=== PATIENT | male | born 1955 | race Caucasian/White ===

== ENCOUNTER 2018-07-17 20:18 | Inpatient (IN) ==
[2018-07-17 20:50] LABS: Baso # (Auto) 0.1 th/mm3 (0.0-0.2); Eos # (Auto) 0.2 th/mm3 (0.0-0.4); Eos % (Auto) 1.3 % (0.0-4.0); Hematocrit 49.6 % (39.0-51.0); Hemoglobin 16.9 gm/dL (13.0-17.0); Lymph # (Auto) 3.3 th/mm3 (1.0-4.8); Lymph % (Auto) 28.3 % (9.0-44.0); Mean Corpuscular HGB Conc 34.2 % (32.0-36.0); Mean Corpuscular Hemoglobin 30.8 pg (27.0-34.0); Mean Platelet Volume 8.1 fL (7.0-11.0); Mono # (Auto) 1.1 th/mm3 (0.0-0.9); Mono % (Auto) 9.5 % (0.0-8.0); Neut # (Auto) 7.1 th/mm3 (1.8-7.7); Neut % (Auto) 59.9 % (16.0-70.0); Platelet Count 192 th/mm3 (150-450); Red Blood Count 5.51 mil/mm3 (4.50-5.90); White Blood Count 11.8 th/mm3 (4.0-11.0)
--- NOTE | 2018-07-17 20:56 | XR ---
EXAM DATE: 07/17/2018 8:47 PM EST AGE/SEX: 62 years / Male INDICATIONS: Short of breath. CLINICAL DATA: This is the patient's initial encounter. Patient reports that signs and symptoms have been present for 1 day and indicates a pain score of 0/10. MEDICAL/SURGICAL HISTORY: None. None. COMPARISON: No prior exams available for comparison. FINDINGS: A single AP view of the chest demonstrates bibasilar patchy infiltrates. Heart enlarged. Tracheostomy tube 6.5 cm above the lucian. The cardiomediastinal contours are unremarkable. Osseous structures a re intact. CONCLUSION: Bibasilar patchy infiltrates. Electronically signed by: Niko Sierra MD Board Certified Radiologist 07/17/2018 8:55 PM EST
[2018-07-17 21:08] LABS: Activated Partial Thrombo Time 27.9 sec (23.4-31.7); INR 1.1 Ratio; Prothrombin Time 10.7 sec (9.8-11.6)
[2018-07-17] MEDS ORDERED: LORazepam 1 MG Tablet PO PRN (21:29)
[2018-07-17] MEDS ORDERED: Azithromycin Inj 500 MG in Sodium Chlor 0.9% Inj 250 ML IV.SIG ONE (21:29)
[2018-07-17] MEDS ORDERED: Haloperidol Inj 5 MG/ML Ampul IV.PUSH PRN (21:29)
[2018-07-17 21:57] LABS: Albumin 3.9 g/dL (3.4-5.0); Anion Gap 15 meq/L (5-15); Blood Urea Nitrogen 7 mg/dL (7-18); Calcium 8.7 mg/dL (8.5-10.1); Carbon Dioxide 22.5 meq/L (21.0-32.0); Chloride 108 meq/L (98-107); Glomerular Filtration Rate 70 mL/min (>89); Glucose,Random 96 mg/dL (74-106); Potassium 3.6 meq/L (3.5-5.1); Sodium 145 meq/L (136-145)
[2018-07-17 21:59] LABS: Alanine Aminotransferase 63 U/L (12-78); Aspartate Aminotransferase 57 U/L (15-37)
[2018-07-17 22:02] LABS: Alkaline Phosphatase 110 U/L (45-117); Creatine Kinase 442 U/L (39-308); Total Protein 8.1 g/dL (6.4-8.2)
[2018-07-17 22:11] LABS: Creatine Kinase MB 4.6 ng/mL (0.5-3.6)
[2018-07-17] MEDS ORDERED: Potassium Chlor 40 mEq Premix 40 MEQ/100 ML PIGGYBACK IV.SIG PRN ×2 (22:36)
[2018-07-17] MEDS ORDERED: Magnesium Sulfate Inj 2 GM in Sodium Chlor 0.9% Inj 96 ML IV.SIG PRN (22:36)
[2018-07-17] MEDS ORDERED: Dextrose 50% in Water 50 ML Vial IV.PUSH PRN (22:36)
[2018-07-17] MEDS ORDERED: Magnesium Oxide 400 MG Tablet PO PRN (22:36)
[2018-07-17] MEDS ORDERED: Potassium Chlor 20 mEq Premix 20 MEQ/100 ML PIGGYBACK IV.SIG PRN ×2 (22:36)
[2018-07-17] MEDS ORDERED: Potassium Phosphate Inj 30 MMOL in Sodium Chlor 0.9% Inj 250 ML IV.SIG PRN (22:36)
[2018-07-17] MEDS ORDERED: Potassium Chloride Liq 20 MEQ/15 ML UDC PO PRN ×2 (22:36)
[2018-07-17] MEDS ORDERED: Sodium Phosphate Inj 30 MMOL in Sodium Chlor 0.9% Inj 250 ML IV.SIG PRN (22:36)
[2018-07-17] MEDS ORDERED: Magnesium Sulfate Inj 4 GM in Sodium Chlor 0.9% Inj 92 ML IV.SIG PRN (22:36)
[2018-07-17] MEDS ORDERED: Bisacodyl 10 MG Supp RECTAL PRN (22:36)
[2018-07-17] MEDS ORDERED: Potassium Phosphate 500 MG Soluble Tablet PO PRN ×2 (22:36)
[2018-07-17] MEDS ORDERED: Acetaminophen 325 MG Tablet PO PRN (22:36)
--- NOTE | 2018-07-17 22:39 | ED ---
HPI General Chief complaint: Shortness of Breath/Dyspnea Stated complaint: difficulty breathing Time Seen by Provider: 07/17/18 20:24 Source: patient and EMS Mode of arrival: EMS Limitations: no limitations History of Present Illness HPI narrative: Patient is a 62-year-old male who is brought in by EMS due to respiratory distress. He says he developed chest pain earlier today as well as the shortness of breath. 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 He has history of IL in the past. He denies any leg pain or swelling. He denies fever or chills. He has been coughing up a lot of mucus through the trach. Severity is moderate. Per daughter, patient is a daily drinker. Related Data Allergies Allergy/AdvReac Type Severity Reaction Status Date / Time codeine Allergy Rash Verified 07/17/18 20:24 Review of Systems ROS: all other systems reviewed are negative Constitutional Denies chills and Denies fever(s) ENT Denies dizziness Cardiovascular Reports chest pain and Reports dyspnea Respiratory Reports cough and Reports dyspnea Gastrointestinal Denies nausea and Denies vomiting Musculoskeletal Denies myalgias and Denies arthralgias Integumentary/Breasts Denies sores and Denies wounds Neurologic Denies focal weakness and Denies numbness Psychiatric Reports anxiety PMFSH Medical History Medical History Chest pain (Acute) Hypertension (Acute) Myocardial infarction (Acute) PTSD (post-traumatic stress disorder) (Acute) Tracheal stenosis (Acute) Social History Social History Smoking Status: Never smoker How Often Do You Have a Drink Containing Alcohol: Monthly or less Immunization History Tetanus Immunization: Unsure Exam Narrative Exam Narrative: GENERAL: Awake and alert, in moderate respiratory distress. SKIN: Focused skin assessment warm/dry. HEAD: Atraumatic. Normocephalic. EYES: Pupils equal and round. No scleral icterus. No injection or drainage. ENT: No nasal bleeding or discharge. Mucous membranes pink and moist. NECK: Trachea midline. No JVD. tracheostomy in place. CARDIOVASCULAR: Regular rate and rhythm. No murmur appreciated. RESPIRATORY: No accessory muscle use. Clear to auscultation. Breath sounds equal bilaterally. GASTROINTESTINAL: Abdomen soft, non-tender, nondistended. MUSCULOSKELETAL: No obvious deformities. No clubbing. No cyanosis. No edema. NEUROLOGICAL: Awake and alert. No obvious cranial nerve deficits. Motor grossly within normal limits. PSYCHIATRIC: Appropriate mood and affect; insight and judgment normal. Course Initial Documented Vital Signs Temperature 99.6 F 07/17/18 20:24 Pulse Rate 145 H 07/17/18 20:24 Respiratory Rate 38 H 07/17/18 20:24 Blood Pressure 149/85 H 07/17/18 20:24 Pulse Oximetry 93 L 07/17/18 20:24 Last Documented Vital Signs Temperature 99.6 F 07/17/18 20:24 Pulse Rate 120 H 07/17/18 21:00 Respiratory Rate 24 07/17/18 21:00 Blood Pressure 133/75 07/17/18 21:00 Pulse Oximetry 93 L 07/17/18 21:00 Critical Care Time Critical Care Time: Yes Total Critical Care Time: 35 Attestation: Aggregate critical care time was 35 minutes. Time to perform other separately billable procedures was not included in the critical care time. My time did not include minutes spent treating any other patients simultaneously or on activities that did not directly contribute to the patient's treatment. The services I provided to this patient were to treat and/or prevent clinically significant deterioration that could result in: serious illness or I provided critical care services requiring my management, as noted below: Chart data review, documentation time, medication orders and management, vital sign assessments/reviewing monitor data, ordering and reviewing lab tests, ordering and interpreting/reviewing x-rays and diagnostic studies, care of the patient and discussion of the patient with the admitting physicians. Medical Decision Making MDM Narrative Medical decision making narrative: Patient is a 62-year-old male who comes in due to respiratory distress. Patient is hypoxic and choking on arrival. EMS did give him a DuoNeb as well as 2 albuterol treatments, Solu-Medrol, aspirin. Patient suctioned via his trach with improvement of his saturation and breathing. Given additional duo nebs. Given Ativan for possible withdrawal/anxiety. Chest x-ray concerning for bilateral infiltrates. Given cefepime, azithromycin. Patient will be admitted for further management. Medical Screen Exam Complete: Yes Emergency Medical Condition: Yes Differential Diagnosis Differential Diagnosis: pneumonia vs mucus plug vs COPD vs IL Lab Data Lab results reviewed: Yes I reviewed the patient's lab results. Result diagrams: 07/17/18 20:30 07/17/18 20:30 Lab Results 07/17/18 07/17/18 07/17/18 Range/Units 20:26 20:30 20:30 WBC 11.8 H (4.0-11.0) th/mm3 RBC 5.51 (4.50-5.90) mil/mm3 Hgb 16.9 (13.0-17.0) gm/dL Hct 49.6 (39.0-51.0) % MCV 90.0 (80.0-100.0) fL MCH 30.8 (27.0-34.0) pg MCHC 34.2 (32.0-36.0) % RDW 16.0 (11.6-17.2) % Plt Count 192 (150-450) th/mm3 MPV 8.1 (7.0-11.0) fL Neut % (Auto) 59.9 (16.0-70.0) % Lymph % (Auto) 28.3 (9.0-44.0) % [place] % (Auto) 9.5 H (0.0-8.0) % Eos % (Auto) 1.3 (0.0-4.0) % Baso % (Auto) 1.0 (0.0-2.0) % Neut # (Auto) 7.1 (1.8-7.7) th/mm3 Lymph # (Auto) 3.3 (1.0-4.8) th/mm3 [place] # (Auto) 1.1 H (0.0-0.9) th/mm3 Eos # (Auto) 0.2 (0.0-0.4) th/mm3 Baso # (Auto) 0.1 (0.0-0.2) th/mm3 WBC Differential . Differential Comment Auto diff final PT (9.8-11.6) sec INR Ratio APTT (23.4-31.7) sec Sodium (136-145) meq/L Potassium (3.5-5.1) meq/L Chloride (98-107) meq/L Carbon Dioxide (21.0-32.0) meq/L Anion Gap (5-15) meq/L BUN (7-18) mg/dL Creatinine (0.60-1.30) mg/dL Estimated GFR (>89) mL/min POC Glucose 90 (68-110) mg/dl Random Glucose (74-106) mg/dL Calcium (8.5-10.1) mg/dL Total Bilirubin (0.2-1.0) mg/dL AST (15-37) U/L ALT (12-78) U/L Alkaline Phosphatase (45-117) U/L Total Creatine Kinase (39-308) U/L CK-MB (CK-2) (0.5-3.6) ng/mL CK-MB (CK-2) % (0.0-4.0) % Troponin I (0.02-0.05) ng/mL B-Natriuretic Peptide 8 (0-100) pg/mL Total Protein (6.4-8.2) g/dL Albumin (3.4-5.0) g/dL 07/17/18 07/17/18 Range/Units 20:30 20:30 WBC (4.0-11.0) th/mm3 RBC (4.50-5.90) mil/mm3 Hgb (13.0-17.0) gm/dL Hct (39.0-51.0) % MCV (80.0-100.0) fL MCH (27.0-34.0) pg MCHC (32.0-36.0) % RDW (11.6-17.2) % Plt Count (150-450) th/mm3 MPV (7.0-11.0) fL Neut % (Auto) (16.0-70.0) % Lymph % (Auto) (9.0-44.0) % [place] % (Auto) (0.0-8.0) % Eos % (Auto) (0.0-4.0) % Baso % (Auto) (0.0-2.0) % Neut # (Auto) (1.8-7.7) th/mm3 Lymph # (Auto) (1.0-4.8) th/mm3 [place] # (Auto) (0.0-0.9) th/mm3 Eos # (Auto) (0.0-0.4) th/mm3 Baso # (Auto) (0.0-0.2) th/mm3 WBC Differential Differential Comment PT 10.7 (9.8-11.6) sec INR 1.1 Ratio APTT 27.9 (23.4-31.7) sec Sodium 145 (136-145) meq/L Potassium 3.6 (3.5-5.1) meq/L Chloride 108 H (98-107) meq/L Carbon Dioxide 22.5 (21.0-32.0) meq/L Anion Gap 15 (5-15) meq/L BUN 7 (7-18) mg/dL Creatinine 1.07 (0.60-1.30) mg/dL Estimated GFR 70 L (>89) mL/min POC Glucose (68-110) mg/dl Random Glucose 96 (74-106) mg/dL Calcium 8.7 (8.5-10.1) mg/dL Total Bilirubin 0.5 (0.2-1.0) mg/dL AST 57 H (15-37) U/L ALT 63 (12-78) U/L Alkaline Phosphatase 110 (45-117) U/L Total Creatine Kinase 442 H (39-308) U/L CK-MB (CK-2) 4.6 H (0.5-3.6) ng/mL CK-MB (CK-2) % 1.0 (0.0-4.0) % Troponin I Less than 0.02 L (0.02-0.05) ng/mL B-Natriuretic Peptide (0-100) pg/mL Total Protein 8.1 (6.4-8.2) g/dL Albumin 3.9 (3.4-5.0) g/dL Imaging Data Radiologist's impression: Chest X-Ray 07/17/18 20:25 CONCLUSION: Bibasilar patchy infiltrates. ECG Data EKG Prior to Arrival: No Attestation: I personally reviewed and interpreted this ECG as follows: Interpretation: ECG shows sinus tachycardia at a rate of 117, no ST elevation or depression Discharge Plan Discharge Disposition Patient Disposition: ED Admit(ED Internal Use Only) Discharge Condition Condition: Fair Discharge Order Discharge Orders: ED Use Only Admit Order (Routine); Ordered 07/17/18 Ordered By: Coco Atkins Discharge Details Diagnosis: Pneumonia, Hypoxia Physicians Team ED Provider: Coco Atkins Primary Care Provider: Primary Care Nathaliai,Mariajose Attending Provider: Servando Gusman Other Providers: Annia Casillas Discharge Interventions Interventions: Vital Signs Last Done: 07/17/18 21:00 Status ED Status: Admitted Patient
[2018-07-17] MEDS ORDERED: Multivitamin Inj 10 ML, Thiamine Inj 100 MG, Folic Acid Inj 1 MG in Sodium Chlor 0.9% I... IV.SIG SCH (23:00)
--- NOTE | 2018-07-17 23:42 | P.HPCC ---
History of Present Illness Service: Critical care medicine Primary Care Physician: No Primary Care Physician Chief Complaint: Shortness of breath History of Present Illness: This is a 62-year-old male with a history of tracheal stenosis status post tracheostomy in the remote past who presented by [facility] with acute shortness of breath. In the emergency department he was found to have bilateral consolidations concerning for infectious process. An elevated white count. He endorses 3 days of fever, chills, green sputum production, shortness of breath, cough. He says he has had pneumonia 7 times in the last 12 months. He denies chest pain, nausea, vomiting, abdominal pain, constipation, diarrhea. Denies hemoptysis. Other than his tracheal stenosis, he states he is otherwise healthy. He does state he drinks alcohol heavily daily. The remainder the review systems is negative. Laboratory evidence is significant for elevated lactate of 3.2, and a white count of 11. Inpatient Certification: I certify that the inpatient services were ordered in accordance with Medicare regulations governing the order. This includes certification that hospital inpatient services are reasonable and necessary and in the case of services not specified as inpatient-only under 42 CFR 419.22(n), that they are appropriately provided as inpatient services in accordance to with the 2-midnight benchmark under 43 CFR 412.3(e) Estimated Total Length of Stay (Days): 7 Plans for Post Hospital Care: Not yet determined Review of Systems All other systems reviewed negative except as stated in [facility] - History History Provided By: Patient - Medical History Medical History: Medical History (Last Updated 07/18/18 @ 01:23 by Servando Gusman MD) Chest pain Hypertension Myocardial infarction PTSD (post-traumatic stress disorder) Tracheal stenosis - Surgical History Surgical History: Surgical History (Last Updated 07/18/18 @ 01:23 by Servando Gusman MD) Tracheostomy in place (Acute) - Family History Family History: Family History (Last Updated 07/18/18 @ 01:22 by Servando Gusman MD) Other Family history non-contributory - Social History I have reviewed the patient's Social History: Yes - Tobacco History Smoking Status: Never smoker - Alcohol History How Often Do You Have a Drink Containing Alcohol: Monthly or less - Immunization History Tetanus Immunization: Unsure Medications and Allergies Active Medications: Active Medications Acetaminophen (Tylenol) 650 mg PO Q6H PRN PRN Reason: TEMPERATURE > 101 F Albuterol (Duoneb Neb (Prn)) 1 ampul NEB Q2HR NEB PRN PRN Reason: WHEEZING Albuterol (Duoneb Neb (Judith)) 1 ampul NEB Q4HR NEB JUDITH Last Admin: 07/17/18 23:42 Dose: 1 ampul Bisacodyl (Dulcolax Supp) 10 mg RECTAL DAILY PRN PRN Reason: if no BM in last 24h Chlorhexidine Gluconate (Chlorhexidine 2% Cloth) 3 pack TOPICAL DAILY@0400 JUDITH Stop: 07/23/18 03:59 Chlorhexidine Gluconate (Chlorhexidine 2% Cloth) 3 pack TOPICAL DAILY@0400 PRN PRN Reason: Extra cloth needed Stop: 07/23/18 03:59 Dextrose (D50w Vial) 50 ml IV.PUSH UNSCH PRN PRN Reason: PER HYPOGLYCEMIA PROTOCOL Enoxaparin Sodium (Lovenox Inj) 40 mg SQ DAILY JUDITH Flumazenil (Romazicon Inj) 0.2 mg IV.PUSH Q1M PRN PRN Reason: OVERSEDATION Folic Acid (Folic Acid) 1 mg PO DAILY [facility] Stop: 07/21/18 08:59 Glucagon (Glucagon Inj) 1 mg OTHER PRN PRN PRN Reason: for Hypoglycemia Protocol Haloperidol Lactate (Haldol Inj) 1 mg IV.PUSH Q15M PRN PRN Reason: for severe agitation Cefepime HCl 2,000 mg/ Sodium (Chloride) 100 mls @ 200 mls/hr IV.SIG Q8H JUDITH Magnesium Sulfate 4 gm/ Sodium (Chloride) 100 mls @ 50 mls/hr IV.SIG UNSCH PRN PRN Reason: For Magnesium 0.9 - 1.1 mg/dL Magnesium Sulfate 2 gm/ Sodium (Chloride) 100 mls @ 50 mls/hr IV.SIG UNSCH PRN PRN Reason: For Magnesium 1.2 - 1.6 mg/dL Metronidazole/Sodium Chloride (Flagyl 500 Mg Inj) 100 mls @ 100 mls/hr IV.SIG Q6H JUDITH Potassium Chloride (Kcl 40 Meq Premix Inj) 40 meq in 100 mls @ 25 mls/hr IV.SIG Q2H PRN PRN Reason: For Potassium 2.8 - 3.2 mEq/L Potassium Chloride (Kcl 20 Meq Premix Inj) 20 meq in 100 mls @ 50 mls/hr IV.SIG Q2H PRN PRN Reason: For Potassium 3.3 - 3.5 mEq/L Potassium Chloride (Kcl 40 Meq Premix Inj) 40 meq in 100 mls @ 25 mls/hr IV.SIG UNSCH PRN PRN Reason: For Potassium 3.3 - 3.5 mEq/L Potassium Chloride (Kcl 20 Meq Premix Inj) 20 meq in 100 mls @ 50 mls/hr IV.SIG Q2H PRN PRN Reason: For Potassium 2.8 - 3.2 mEq/L Potassium Phosphate 30 mmol/ (Sodium Chloride) 260 mls @ 42 mls/hr IV.SIG UNSCH PRN PRN Reason: SEE LABEL COMMENTS Sodium Phosphate 30 mmol/ (Sodium Chloride) 260 mls @ 42 mls/hr IV.SIG UNSCH PRN PRN Reason: For Phosphorus < 2.5 mg/dL Multivitamins 10 ml/ Thiamine HCl 100 mg/ Folic Acid 1 mg/Sodium Chloride 511.2 mls @ 125 mls/hr IV.SIG Q24H JUDITH Stop: 07/20/18 03:06 Sodium Chloride (Ns Inj) 1,000 mls @ 84 mls/hr IV.CONT .[id number] JUDITH Insulin Human Regular (Novolin R [employer] Sugar Inj) 0 units SQ ACHS AND 3AM JUDITH; Protocol Lactulose (Lactulose Liq) 30 ml PO BID JUDITH Lorazepam (Ativan) 1 mg PO Q4H PRN PRN Reason: for CIWA 8-10 Lorazepam (Ativan) 2 mg PO Q2H PRN PRN Reason: for CIWA 11-14 Lorazepam (Ativan Inj) 2 mg IV.PUSH Q2H PRN PRN Reason: for CIWA 11-14 Lorazepam (Ativan Inj) 2 mg IV.PUSH Q1H PRN PRN Reason: for CIWA 15-20 Lorazepam (Ativan Inj) 2 mg IV.PUSH Q15M PRN PRN Reason: for CIWA > 20 Lorazepam (Ativan Inj) 1 mg IV.PUSH Q4H PRN PRN Reason: for CIWA 8-10 Magnesium Oxide (Mag-Ox) 800 mg PO UNSCH PRN PRN Reason: For Magnesium 1.2 - 1.6 mg/dL Ondansetron HCl (Zofran Inj) 4 mg IV.PUSH Q6H PRN PRN Reason: NAUSEA OR VOMITING Polyethylene Glycol (Miralax) 17 gm PO BID JUDITH Potassium Chloride (Kcl Liq) 40 meq PO UNSCH PRN PRN Reason: Potassium level 3.3-3.5 mEq/L Potassium Chloride (Kcl Liq) 40 meq PO UNSCH PRN PRN Reason: POTASSIUM LESS THAN 3.5 Potassium Phosphate (K-Phos Original) 2,000 mg PO Q4H PRN PRN Reason: Phosphorus Less Than 2.5 mg/dL Potassium Phosphate (K-Phos Original) 2,000 mg PO UNSCH PRN PRN Reason: SEE LABEL COMMENTS Senna/Docusate Sodium (Kate-Colace) 1 tab PO BID JUDITH Sodium Chloride (Ns Flush) 2 ml IV.FLUSH UNSCH PRN PRN Reason: FLUSH AFTER USING IV ACCESS Sodium Chloride (Ns Flush) 2 ml IV.FLUSH UNSCH PRN PRN Reason: FLUSH AFTER USING IV ACCESS Thiamine HCl (Vitamin B1) 100 mg PO DAILY JUDITH Stop: 07/21/18 08:59 Allergies Allergy/AdvReac Type Severity Reaction Status Date / Time codeine Allergy Rash Verified 07/17/18 20:24 Home Medications Medication Instructions Recorded Confirmed Type Unable to Obtain Home Meds 07/18/18 07/18/18 History Results - Labs CBC & Chem 7: 07/17/18 20:30 07/17/18 20:30 Labs: Short CBC 07/17/18 Range/Units 20:30 WBC 11.8 H (4.0-11.0) th/mm3 Hgb 16.9 (13.0-17.0) gm/dL Hct 49.6 (39.0-51.0) % Plt Count 192 (150-450) th/mm3 BMP 07/17/18 20:30 Sodium 145 Potassium 3.6 Chloride 108 H Carbon Dioxide 22.5 BUN 7 Creatinine 1.07 Calcium 8.7 Cardiac Enzymes 07/17/18 Range/Units 20:30 Total Creatine Kinase 442 H (39-308) U/L CK-MB (CK-2) 4.6 H (0.5-3.6) ng/mL Troponin I Less than 0.02 L (0.02-0.05) ng/mL Liver Function 07/17/18 Range/Units 20:30 Total Bilirubin 0.5 (0.2-1.0) mg/dL AST 57 H (15-37) U/L ALT 63 (12-78) U/L Alkaline Phosphatase 110 (45-117) U/L Albumin 3.9 (3.4-5.0) g/dL - Imaging Impressions Chest X-Ray 07/17/18 20:25 CONCLUSION: Bibasilar patchy infiltrates. Exam Vital signs: Vital Signs 07/17/18 20:24 07/17/18 20:28 07/17/18 20:30 Temperature 37.6 C Pulse Rate 145 H 111 H 114 H Respiratory Rate 38 H 24 26 H Blood Pressure 149/85 H 141/68 H Pulse Oximetry 93 L 94 L 93 L 07/17/18 20:39 07/17/18 20:45 07/17/18 21:00 Temperature Pulse Rate 114 H 120 H Respiratory Rate 22 24 Blood Pressure 133/75 Pulse Oximetry 92 L 93 L Intake & Output 07/17/18 07/17/18 07/18/18 06:59 18:59 06:59 Weight 108.862 kg Narrative: GENERAL: Middle-age male, lying in bed, in moderate respiratory distress HEENT: Normocephalic. Atraumatic. Pupils equal, round, reactive, conjugate. Mucous membranes are moist NECK: Trachea is midline. There is a tracheostomy in place that is well-healed without drainage. There is no JVD. CHEST: Equal chest rise. Mildly labored. On aerosolized trach collar at 10 L/ min. Using accessory muscles. CARDIOVASCULAR: Normal rate, regular rhythm. Sinus. ABDOMEN: Soft, nontender, nondistended. No guarding. MUSCULOSKELETAL: Pulses 2+. No peripheral edema. NEUROLOGICAL: RASS 0. CAM -. Follows commands in all 4 extremities. no focal deficits. Septic Shock Reassessment Septic shock perfusion: reassessment completed Caprini VTE Risk Assessment Caprini VTE Risk Assessment: Moderate/High Risk (score >= 2) Caprini Risk Assessment Model: Point Value = 1 Point Value = 2 Point Value = 3 Point Value = 5 Age 41-60 Minor surgery BMI > 25 kg/m2 Swollen legs Varicose veins or History of unexplained or recurrent spontaneous Oral contraceptives or hormone replacement Sepsis (< 1 month) Serious lung disease, including pneumonia (< 1 month) Abnormal pulmonary function Acute myocardial infarction Congestive heart failure (< 1 month) History of inflammatory bowel disease Medical patient at bed rest Age 61-74 Arthroscopic surgery Major open surgery (> 45 min) Laparoscopic surgery (> 45 min) Malignancy Confined to bed (> 72 hours) Immobilizing plaster cast Central venous access Age >= 75 History of VTE Family history of VTE Factor V Leiden Prothrombin [id number] Lupus anticoagulant Anticardiolipin antibodies Elevated serum homocysteine Heparin-induced thrombocytopenia Other congenital or acquired thrombophilia Stroke (< 1 month) Elective arthroplasty Hip, pelvis, or leg fracture Acute spinal cord injury (< 1 month) Prophylaxis Regimen: Total Risk Factor Score Risk Level Prophylaxis Regimen 0-1 Low Early ambulation 2 Moderate Order ONE of the following: *Sequential Compression Device (SCD) *Heparin 5000 units SQ BID 3-4 Higher Order ONE of the following medications: *Heparin 5000 units SQ TID *Enoxaparin/Lovenox 40 mg SQ daily (WT < 150 kg, CrCl > 30 mL/min) *Enoxaparin/Lovenox 30 mg SQ daily (WT < 150 kg, CrCl > 10-29 mL/min) *Enoxaparin/Lovenox 30 mg SQ BID (WT < 150 kg, CrCl > 30 mL/min) AND/OR *Sequential Compression Device (SCD) 5 or more Highest Order ONE of the following medications: *Heparin 5000 units SQ TID (Preferred with Epidurals) *Enoxaparin/Lovenox 40 mg SQ daily (WT < 150 kg, CrCl > 30 mL/min) *Enoxaparin/Lovenox 30 mg SQ daily (WT < 150 kg, CrCl > 10-29 mL/min) *Enoxaparin/Lovenox 30 mg SQ BID (WT < 150 kg, CrCl > 30 mL/min) AND *Sequential Compression Device (SCD) Assessment and Plan - Assessment and Plan Plan: Assessment: 62-year-old male with remote tracheostomy in the past presents with community-acquired pneumonia and acute hypoxemia requiring supplemental oxygen. Community acquired pneumonia - given long-standing tracheostomy and history of multiple prior pneumonias this year, will cover for anti-pseudomonal resistant bacteria - cefepime, flagyl - sputum culture - blood cultures Septic shock - elevated lactate with tachycardia, wbc - abx as above Acute hypoxemia requiring supplemental oxygen - wean o2 as tolerated, goal spo2 > 90% - secondary to pneumonia Lactic acidosis - secondary to sepsis - ivf resuscitation - trend admit to ICU SCDs lovenox
[2018-07-18] MEDS: Enoxaparin Inj 60 MG/0.6 ML Syringe SQ SCH ×2 (00:18→09:10)
[2018-07-18 02:45] LABS: Anion Gap 8 meq/L (5-15); Blood Urea Nitrogen 10 mg/dL (7-18); Calcium 7.9 mg/dL (8.5-10.1); Carbon Dioxide 27.4 meq/L (21.0-32.0); Chloride 110 meq/L (98-107); Glomerular Filtration Rate 79 mL/min (>89); Glucose,Random 167 mg/dL (74-106); Sodium 145 meq/L (136-145)
[2018-07-18] MEDS: Sod Chloride 0.9% Inj 1,000 ML IV.CONT SCH ×2 (03:22→22:20)
[2018-07-18] MEDS: Insulin NovoLIN Regular Correctional Sugar Inj SQ SCH ×3 (03:23→13:52)
[2018-07-18] MEDS: Chlorhexidine Gluconate 2% 1 Pack (2 Cloths) TOPICAL SCH (03:23)
[2018-07-18 03:52] LABS: Phosphorus 3.3 mg/dL (2.5-4.9)
[2018-07-18] MEDS ORDERED: Chlorhexidine Gluconate 2% 1 Pack (2 Cloths) TOPICAL PRN (04:00)
--- NOTE | 2018-07-18 05:56 | XR ---
EXAM DATE: 07/18/2018 5:36 AM EST AGE/SEX: 62 years / Male INDICATIONS: Atelectasis. CLINICAL DATA: This is the patient's subsequent encounter. Patient reports that signs and symptoms h ave been present for 2 days and indicates a pain score of Nonresponsive. MEDICAL/SURGICAL HISTORY: Hypertension. Myocardial infarctions. Tracheal stenosis. . Tracheost stiven. COMPARISON: C, CHEST 1V SINGLE AP, 07/17/2018. . FINDINGS: A single AP view of the chest demonstrates persistent elevation of the right hemidiaphragm. Bibasilar airspace disease is probably atelectatic in does show some interval improvement. Heart size is borde rline prominent but well compensated. Tracheostomy tube remains stable in position. CONCLUSION: 1. Stable elevation of the right hemidiaphragm with improving bibasilar atelectatic changes. 2. Heart size is borderline prominent but well compensated. Electronically signed by: Pascual Loredo MD Board Certified Radiologist 07/18/2018 5:55 AM EST
[2018-07-18 08:59] LABS: Baso % (Auto) 0.2 % (0.0-2.0); Hematocrit 48.6 % (39.0-51.0); Hemoglobin 16.3 gm/dL (13.0-17.0); Lymph # (Auto) 0.8 th/mm3 (1.0-4.8); Lymph % (Auto) 7.4 % (9.0-44.0); Mean Corpuscular HGB Conc 33.5 % (32.0-36.0); Mean Corpuscular Hemoglobin 30.7 pg (27.0-34.0); Mean Corpuscular Volume 91.7 fL (80.0-100.0); Mean Platelet Volume 8.1 fL (7.0-11.0); Mono # (Auto) 0.4 th/mm3 (0.0-0.9); Mono % (Auto) 3.9 % (0.0-8.0); Neut # (Auto) 9.2 th/mm3 (1.8-7.7); Neut % (Auto) 88.5 % (16.0-70.0); Platelet Count 157 th/mm3 (150-450); Red Cell Distribution Width 16.3 % (11.6-17.2); White Blood Count 10.4 th/mm3 (4.0-11.0)
[2018-07-18] MEDS: Senna/Docusate Sodium 8.6/50 MG Tablet PO SCH ×2 (09:12→20:53)
[2018-07-18] MEDS: Folic Acid 1 MG Tablet PO SCH (09:12)
[2018-07-18] MEDS: Polyethylene Glycol 3350 17 GM Packet PO SCH ×2 (09:12→20:53)
--- NOTE | 2018-07-18 15:14 | P.PNIM ---
Subjective Interval history: Patient reports that his breathing is better. Less short of breath. No complaints of chest pain. No fevers or chills. Physical Exam Vital signs: Vital Signs 07/17/18 20:24 07/17/18 20:28 07/17/18 20:30 Temperature 99.6 F Pulse Rate 145 H 111 H 114 H Respiratory Rate 38 H 24 26 H Blood Pressure 149/85 H 141/68 H Pulse Oximetry 93 L 94 L 93 L 07/17/18 20:39 07/17/18 20:45 07/17/18 21:00 Temperature Pulse Rate 114 H 120 H Respiratory Rate 22 24 Blood Pressure 133/75 Pulse Oximetry 92 L 93 L 07/17/18 23:43 07/18/18 00:00 07/18/18 01:00 Temperature Pulse Rate 101 H 105 H 99 H Respiratory Rate 20 18 18 Blood Pressure 154/87 H 152/87 H Pulse Oximetry 92 L 92 L 07/18/18 02:00 07/18/18 03:29 07/18/18 04:00 Temperature 98.4 F Pulse Rate 94 H 103 H 102 H Respiratory Rate 18 22 32 H Blood Pressure 158/92 H 202/103 H Pulse Oximetry 92 L 95 07/18/18 04:51 07/18/18 05:00 07/18/18 06:00 Temperature Pulse Rate 93 H 90 86 Respiratory Rate 19 19 17 Blood Pressure 140/65 136/83 Pulse Oximetry 92 L 92 L 93 L 07/18/18 06:17 07/18/18 07:00 07/18/18 08:00 Temperature 98.8 F Pulse Rate 88 77 84 Respiratory Rate 19 18 Blood Pressure 126/78 146/86 H Pulse Oximetry 92 L 94 L 07/18/18 08:05 07/18/18 08:07 07/18/18 08:30 Temperature Pulse Rate 98 H 98 H Respiratory Rate 20 Blood Pressure Pulse Oximetry 95 96 07/18/18 09:00 07/18/18 10:00 07/18/18 10:25 Temperature Pulse Rate 91 H 80 100 H Respiratory Rate 19 21 Blood Pressure 156/86 H 125/75 Pulse Oximetry 07/18/18 10:37 07/18/18 11:00 07/18/18 12:00 Temperature 98.2 F Pulse Rate 92 H 84 91 H Respiratory Rate 20 19 20 Blood Pressure 130/63 134/63 Pulse Oximetry 07/18/18 13:00 07/18/18 13:16 Temperature Pulse Rate 83 81 Respiratory Rate 12 20 Blood Pressure 127/58 L Pulse Oximetry Intake & Output 07/17/18 07/18/18 07/18/18 18:59 06:59 18:59 Intake Total 1221.2 / 1221.2 100 / 100 Output Total 900 / 900 Balance 321.2 / 321.2 100 / 100 Weight 114.6 kg Intake: IV 1221.2 / 1221.2 100 / 100 NS Inj 1,000 ML @ 84 mls/hr IV. 60 / 60 CONT .[id number] [facility] Rx#:[id number] Azithromycin Inj 500 MG In NS 250 / 250 Inj 250 ML @ 250 mls/hr IV.SIG ONCE ONE Rx#:[id number] Maxipime Inj 1,000 MG In NS Inj 100 / 100 100 ML @ 200 mls/hr IV.SIG ONCE ONE Rx#:[id number] Maxipime Inj 2,000 MG In NS Inj 100 / 100 100 ML @ 200 mls/hr IV.SIG Q8H [facility] Rx#:[id number] MVI-12 Inj 10 ML Thiamine Inj 511.2 / 511.2 100 MG Folvite Inj 1 MG In NS Inj 500 ML @ 125 mls/hr IV.SIG Q24H [facility] Rx#:[id number] Flagyl 500 MG Inj 100 ML @ 100 200 / 200 100 / 100 mls/hr IV.SIG Q6H [facility] Rx#: [id number] Output: Urine 900 / 900 Other: Weight On Admission 115 kg Narrative: Well-nourished well-developed male lying in bed in intensive care unit Neck shows trach in place with with trach collar Regular rate and rhythm without murmurs Lungs few bibasilar crackles Abdomen was soft nontender nondistended Neurological examalert and oriented x3 moves all 4 extremities Results Labs CBC & Chem 7: 07/18/18 08:31 07/18/18 02:20 Labs: Microbiology 07/17/18 20:30 Blood - Peripheral Aerobic Blood Culture - Preliminary No growth in 1 day 07/17/18 20:30 Blood - Peripheral Anaerobic Blood Culture - Preliminary No growth in 1 day 07/17/18 20:35 Blood - Peripheral Aerobic Blood Culture - Preliminary No growth in 1 day 07/17/18 20:35 Blood - Peripheral Anaerobic Blood Culture - Preliminary No growth in 1 day Imaging Imaging: Impressions Chest X-Ray 07/17/18 20:25 CONCLUSION: Bibasilar patchy infiltrates. Chest X-Ray 07/18/18 05:00 CONCLUSION: 1. Stable elevation of the right hemidiaphragm with improving bibasilar atelectatic changes. 2. Heart size is borderline prominent but well compensated. Assessment and Plan (1) Acute respiratory failure with hypoxemia: Code(s): J96.01 - Acute respiratory failure with hypoxia Status: Acute (2) Severe sepsis: Code(s): A41.9 - Sepsis, unspecified organism; R65.20 - Severe sepsis without septic shock Status: Acute (3) Pneumonia: Code(s): J18.9 - Pneumonia, unspecified organism Status: Acute Plan 62-year-old male with a history of tracheal stenosis status post tracheostomy in the remote past presented with acute shortness of breath Severe sepsis with presenting lactic acid 3.2 with tachycardia and tachypnea with source community acquired pneumonia-clinically improved Acute respiratory failure with hypoxemia requiring supplemental oxygen- Currently still on trach collar, FiO2 50%, wean as tolerated Community-acquired pneumoniacontinue cefepime, add Zithromax, on Flagyl, follow -up with blood cultures Patient has had multiple history of prior pneumonias and long-standing tracheostomy, coverage for Pseudomonas initiated Follow-up with sputum cultures Continue supportive care Leukocytosistrending down overnight DVT prophylaxisLovenox Physical therapy evaluation Transfer out of intensive care unit Progress Note: Quality VTE Deep Vein Thrombosis/Pulmonary Embolism Present on Admission: No _ (1) Pneumonia Qualifiers: Aspiration pneumonia type: Laterality: bilateral Lung location: unspecified part of lung Pneumonia type: due to unspecified organism Qualified Code(s): J18.9 - Pneumonia, unspecified organism
[2018-07-18] MEDS: Azithromycin 250 MG Tablet PO SCH (21:00)
[2018-07-18] MEDS ORDERED: Melatonin 5 MG Tablet PO ONE (22:29)
--- NOTE | 2018-07-18 22:53 | ECG ---
Date Performed: 07/17/2018 Time Performed: 20:22:25 PTAGE: 62 years EKG: SINUS TACHYCARDIA POSSIBLE LEFT ATRIAL ENLARGEMENT INTRAVENTRICULAR CONDUCTION DELAY INFERI OR MYOCARDIAL INFARCTION ABNORMAL ECG PREVIOUS TRACING : 06/25/1998 08.19 DOCTOR: Jone Ozuna Interpretating Date/Time 07/18/2018 22:51:46
[2018-07-19] MEDS: Chlorhexidine Gluconate 2% 1 Pack (2 Cloths) TOPICAL SCH (05:10)
[2018-07-19] MEDS: Folic Acid 1 MG Tablet PO SCH (09:44)
[2018-07-19] MEDS: Senna/Docusate Sodium 8.6/50 MG Tablet PO SCH (09:44)
[2018-07-19] MEDS: Enoxaparin Inj 60 MG/0.6 ML Syringe SQ SCH (09:44)
[2018-07-19] MEDS: Polyethylene Glycol 3350 17 GM Packet PO SCH (09:44)
--- NOTE | 2018-07-19 15:40 | P.PNIM ---
Subjective Interval history: Patient reports breathing much better. No active shortness of breath. No fevers or chills. Trying to get rest and difficult to get rest here in the intensive care unit Physical Exam Vital signs: Vital Signs 07/18/18 15:44 07/18/18 16:00 07/18/18 17:00 Temperature 98.2 F Pulse Rate 94 H 93 H 82 Respiratory Rate 16 22 23 Blood Pressure 129/71 127/69 Pulse Oximetry 07/18/18 18:00 07/18/18 19:00 07/18/18 20:00 Temperature Pulse Rate 73 96 H 93 H Respiratory Rate 22 31 H 33 H Blood Pressure 115/66 Pulse Oximetry 96 82 L 07/18/18 20:08 07/18/18 20:21 07/18/18 21:00 Temperature Pulse Rate 96 H 93 H 95 H Respiratory Rate 22 18 21 Blood Pressure 143/77 H Pulse Oximetry 96 98 07/18/18 22:00 07/18/18 23:00 07/18/18 23:50 Temperature Pulse Rate 80 70 79 Respiratory Rate 21 21 18 Blood Pressure Pulse Oximetry 94 L 07/19/18 00:00 07/19/18 00:11 07/19/18 01:00 Temperature Pulse Rate 111 H 87 73 Respiratory Rate 30 H 29 H 22 Blood Pressure 140/82 Pulse Oximetry 81 L 97 97 07/19/18 02:00 07/19/18 03:00 07/19/18 04:00 Temperature Pulse Rate 72 65 66 Respiratory Rate 20 23 18 Blood Pressure Pulse Oximetry 95 95 07/19/18 04:40 07/19/18 05:00 07/19/18 06:00 Temperature Pulse Rate 90 65 73 Respiratory Rate 26 H 20 22 Blood Pressure 173/81 H Pulse Oximetry 84 L 93 L 89 L 07/19/18 07:00 07/19/18 08:00 07/19/18 08:22 Temperature 98.8 F Pulse Rate 62 62 83 Respiratory Rate 21 19 20 Blood Pressure Pulse Oximetry 99 98 98 07/19/18 09:00 07/19/18 09:06 07/19/18 09:32 Temperature Pulse Rate 95 H 92 H 89 Respiratory Rate 39 H 25 H 24 Blood Pressure 153/100 H 156/77 H Pulse Oximetry 93 L 07/19/18 10:00 07/19/18 11:00 07/19/18 11:38 Temperature Pulse Rate 80 71 88 Respiratory Rate 23 23 22 Blood Pressure 147/80 H 153/96 H Pulse Oximetry 93 L 95 07/19/18 12:00 07/19/18 13:00 07/19/18 14:00 Temperature 98.6 F Pulse Rate 74 92 H 74 Respiratory Rate 24 25 H 36 H Blood Pressure 151/87 H 156/87 H Pulse Oximetry 97 07/19/18 14:01 07/19/18 15:16 Temperature Pulse Rate 75 79 Respiratory Rate 25 H 20 Blood Pressure 161/89 H Pulse Oximetry 96 Intake & Output 07/18/18 07/19/18 07/19/18 18:59 06:59 18:59 Intake Total 620 / 620 1640 / 1640 195 / 195 Output Total 1200 / 1200 1600 / 1600 Balance -580 / -580 40 / 40 195 / 195 Weight 117 kg Intake: IV 200 / 200 1140 / 1140 195 / 195 NS Inj 1,000 ML @ 84 mls/hr IV. 640 / 640 CONT .[id number] [facility] Rx#:[id number] Maxipime Inj 2,000 MG In NS Inj 100 / 100 200 / 200 97 / 97 100 ML @ 200 mls/hr IV.SIG Q8H [facility] Rx#:[id number] Flagyl 500 MG Inj 100 ML @ 100 100 / 100 300 / 300 98 / 98 mls/hr IV.SIG Q6H [facility] Rx#: [id number] Oral 420 / 420 500 / 500 Output: Urine 1200 / 1200 1600 / 1600 Narrative: Well-nourished well-developed male lying in bed in intensive care unit Neck shows trach in place with with trach collar Regular rate and rhythm without murmurs Lungs relatively clear to auscultation bilaterally Abdomen was soft nontender nondistended Neurological examalert and oriented x3 moves all 4 extremities Results Labs CBC & Chem 7: 07/18/18 08:31 07/18/18 02:20 Labs: Microbiology 07/17/18 20:30 Blood - Peripheral Aerobic Blood Culture - Preliminary No growth in 2 days 07/17/18 20:30 Blood - Peripheral Anaerobic Blood Culture - Preliminary No growth in 2 days 07/17/18 20:35 Blood - Peripheral Aerobic Blood Culture - Preliminary No growth in 2 days 07/17/18 20:35 Blood - Peripheral Anaerobic Blood Culture - Preliminary No growth in 2 days Assessment and Plan (1) Acute respiratory failure with hypoxemia: Code(s): J96.01 - Acute respiratory failure with hypoxia Status: Acute (2) Severe sepsis: Code(s): A41.9 - Sepsis, unspecified organism; R65.20 - Severe sepsis without septic shock Status: Acute (3) Pneumonia: Code(s): J18.9 - Pneumonia, unspecified organism Status: Acute Plan 62-year-old male with a history of tracheal stenosis status post tracheostomy in the remote past presented with acute shortness of breath Severe sepsis with presenting lactic acid 3.2 with tachycardia and tachypnea with source community acquired pneumonia-clinically improved Acute respiratory failure with hypoxemia requiring supplemental oxygen- Currently still on trach collar, FiO2 35 %, wean as tolerated Community-acquired pneumoniacontinue cefepime, Zithromax, discontinue Flagyl, follow-up with blood cultures Patient has had multiple history of prior pneumonias and long-standing tracheostomy, coverage for Pseudomonas initiated No sputum cultures available, blood cultures and shows no growth to date thus far Continue supportive care Leukocytosistrending down overnight DVT prophylaxisLovenox Physical therapy evaluation; may need rehab, consult OT. Transfer out of intensive care unit; still awaiting bed at [facility] floor Progress Note: Quality VTE Deep Vein Thrombosis/Pulmonary Embolism Present on Admission: No _ (1) Pneumonia Qualifiers: Aspiration pneumonia type: Laterality: bilateral Lung location: unspecified part of lung Pneumonia type: due to unspecified organism Qualified Code(s): J18.9 - Pneumonia, unspecified organism
[2018-07-19] MEDS: Azithromycin 250 MG Tablet PO SCH (21:26)
--- NOTE | 2018-07-20 04:28 | CT ---
EXAM DATE: 07/20/2018 4:20 AM EST AGE/SEX: 62 years / Male INDICATIONS: Trauma; fell and hit head. CLINICAL DATA: This is the patient's initial encounter. Patient reports that signs and symptoms have been present for 1 day and indicates a pain score of 5/10. MEDICAL/SURGICAL HISTORY: Hyperparathyroidism. Myocardial infarction. . Tracheostomy. RADIATION DOSE: 66.34 CTDI (mGy) COMPARISON: No prior exams available for comparison. TECHNIQUE: CT of the head without contrast. Using automated exposure control and adjustment of the mA and/or kV according to patient size, radiation dose was kept as low as reasonably achievable to ob tain optimal diagnostic quality images. DICOM format image data is available electronically for revi ew and comparison. FINDINGS: Cerebrum: The ventricles are normal for age. No evidence of midline shift, mass lesion, hemorrhage or acute infarction. No extraaxial fluid collections are seen. Posterior Fossa: The cerebellum and brainstem are intact. The 4th ventricle is midline. The cerebe llopontine angle is unremarkable. Extracranial: The visualized portion of the orbits is intact. Skull: The calvaria is intact. No evidence of skull fracture. CONCLUSION: 1. No acute intracranial abnormality. . . Electronically signed by: Joey Andrade MD Board Certified Radiologist 07/20/2018 4:27 AM EST
[2018-07-20] MEDS: Chlorhexidine Gluconate 2% 1 Pack (2 Cloths) TOPICAL SCH (04:32)
[2018-07-20] MEDS: Enoxaparin Inj 60 MG/0.6 ML Syringe SQ SCH (08:16)
[2018-07-20] MEDS: Folic Acid 1 MG Tablet PO SCH (08:17)
--- NOTE | 2018-07-20 13:36 | P.PNIM ---
Subjective Interval history: Patient reports still some mild shortness of breath, no fevers or chills. Wants to go home soon. Nursing staff states that he is still scoring high on CIWA and requiring frequent Ativan Physical Exam Vital signs: Vital Signs 07/19/18 14:00 07/19/18 14:01 07/19/18 15:00 Temperature Pulse Rate 74 75 73 Respiratory Rate 36 H 25 H Blood Pressure 161/89 H Pulse Oximetry 97 96 07/19/18 15:16 07/19/18 16:00 07/19/18 19:55 Temperature 98.9 F Pulse Rate 79 75 72 Respiratory Rate 20 24 22 Blood Pressure 132/74 Pulse Oximetry 94 L 95 07/19/18 19:56 07/19/18 20:00 07/19/18 23:00 Temperature 98.1 F Pulse Rate 84 75 Respiratory Rate 24 Blood Pressure 148/89 H Pulse Oximetry 95 97 07/20/18 00:00 07/20/18 00:55 07/20/18 00:58 Temperature 98.1 F Pulse Rate 70 63 Respiratory Rate 22 21 Blood Pressure 128/74 Pulse Oximetry 97 95 95 07/20/18 04:00 07/20/18 04:28 07/20/18 04:33 Temperature 98.2 F Pulse Rate 72 87 Respiratory Rate 16 22 Blood Pressure 133/69 Pulse Oximetry 97 96 96 07/20/18 07:00 07/20/18 08:21 07/20/18 08:31 Temperature 96.6 F L Pulse Rate 76 74 Respiratory Rate 16 28 H Blood Pressure 144/92 H Pulse Oximetry 95 95 07/20/18 13:27 Temperature Pulse Rate 93 H Respiratory Rate 18 Blood Pressure Pulse Oximetry Intake & Output 07/19/18 07/20/18 07/20/18 18:59 06:59 18:59 Intake Total 1155 / 1155 440 / 440 100 / 100 Output Total 1525 / 1525 1550 / 1550 Balance -370 / -370 -1110 / -1110 100 / 100 Weight 117 kg Intake: IV 195 / 195 200 / 200 100 / 100 Maxipime Inj 2,000 MG In NS Inj 97 / 97 200 / 200 100 / 100 100 ML @ 200 mls/hr IV.SIG Q8H [facility] Rx#:[id number] Flagyl 500 MG Inj 100 ML @ 100 98 / 98 mls/hr IV.SIG Q6H [facility] Rx#: [id number] Oral 960 / 960 240 / 240 Output: Urine 1525 / 1525 1550 / 1550 Other: # Voids 4 # Incontinent Voids 0 Date of Last Bowel Movement 07/19/18 07/19/18 07/19/18 # Bowel Movements 1 1 # Incontinent Bowel Movements 0 Narrative: Well-nourished well-developed male lying in bed in intensive care unit Neck shows trach in place with with trach collar Regular rate and rhythm without murmurs Lungs relatively clear to auscultation bilaterally Abdomen was soft nontender nondistended normoactive bowel sounds Neurological examalert and oriented x to place, person, time but not completely to situation. Moves all 4 extremities Results Labs CBC & Chem 7: 07/18/18 08:31 07/18/18 02:20 Labs: Microbiology 07/17/18 20:30 Blood - Peripheral Aerobic Blood Culture - Preliminary No growth in 3 days 07/17/18 20:30 Blood - Peripheral Anaerobic Blood Culture - Preliminary No growth in 3 days 07/17/18 20:35 Blood - Peripheral Aerobic Blood Culture - Preliminary No growth in 3 days 07/17/18 20:35 Blood - Peripheral Anaerobic Blood Culture - Preliminary No growth in 3 days Imaging Imaging: Impressions Head CT 07/20/18 00:00 CONCLUSION: 1. No acute intracranial abnormality. . . Assessment and Plan (1) Acute respiratory failure with hypoxemia: Code(s): J96.01 - Acute respiratory failure with hypoxia Status: Acute (2) Severe sepsis: Code(s): A41.9 - Sepsis, unspecified organism; R65.20 - Severe sepsis without septic shock Status: Acute (3) Pneumonia: Code(s): J18.9 - Pneumonia, unspecified organism Status: Acute Plan 62-year-old male with a history of tracheal stenosis status post tracheostomy in the remote past presented with acute shortness of breath Severe sepsis with presenting lactic acid 3.2 with tachycardia and tachypnea with source community acquired pneumonia-clinically improved Acute respiratory failure with hypoxemia requiring supplemental oxygen- Currently still on trach collar, FiO2 35 %, 8 L of oxygen, wean as tolerated Community-acquired pneumoniacontinue cefepime, Zithromax, discontinue Flagyl, follow-up with blood cultures Patient has had multiple history of prior pneumonias and long-standing tracheostomy, coverage for Pseudomonas initiated No sputum cultures available, blood cultures and shows no growth to date thus far Continue supportive care Leukocytosistrending down overnight History of alcohol abuse with alcohol withdrawal-currently on CIWA protocol Continue thiamine, multivitamins DVT prophylaxisLovenox Physical therapy evaluation; likely will need care home facility, patient open to this we will have case management assist with placement Transfer out of intensive care unit; Progress Note: Quality VTE Deep Vein Thrombosis/Pulmonary Embolism Present on Admission: No _ (1) Pneumonia Qualifiers: Aspiration pneumonia type: Laterality: bilateral Lung location: unspecified part of lung Pneumonia type: due to unspecified organism Qualified Code(s): J18.9 - Pneumonia, unspecified organism
[2018-07-20] MEDS: Azithromycin 250 MG Tablet PO SCH (22:07)
[2018-07-21] MEDS: Chlorhexidine Gluconate 2% 1 Pack (2 Cloths) TOPICAL SCH (03:55)
[2018-07-21] MEDS: Enoxaparin Inj 60 MG/0.6 ML Syringe SQ SCH (08:13)
[2018-07-21 08:34] VITALS: PULSE 78; RESP 25
--- NOTE | 2018-07-21 10:30 | P.DS ---
DS: Providers Date of admission: 07/17/18 22:38 Primary care physician: No Primary Care Physician Consults: 07/17/18 22:39 Consult to Hospitalist Routine Consulting Provider: Annia Casillas Reason for Consultation: community acquired pneumonia Notified:: Service Spoke with:: claudia Date Notified:: 07/17/18 Time Notified:: 22:56 Ordering Provider: AIDAN Brief History from admission: This is a 62-year-old male with a history of tracheal stenosis status post tracheostomy in the remote past who presented by [facility] with acute shortness of breath. In the emergency department he was found to have bilateral consolidations concerning for infectious process. An elevated white count. He endorses 3 days of fever, chills, green sputum production, shortness of breath, cough. He says he has had pneumonia 7 times in the last 12 months. He denies chest pain, nausea, vomiting, abdominal pain, constipation, diarrhea. Denies hemoptysis. Other than his tracheal stenosis, he states he is otherwise healthy. He does state he drinks alcohol heavily daily. The remainder the review systems is negative. Laboratory evidence is significant for elevated lactate of 3.2, and a white count of 11. DS: Diagnosis Discharge Diagnosis (1) Acute respiratory failure with hypoxemia: Status: Acute (2) Severe sepsis: Status: Acute (3) Pneumonia: Status: Acute DS: Summary Patient is a 62 y/o male with tracheal stenosis s/p tracheostomy. He has had multiple hospitalizations in the past for pna and shortness of breath. He was admitted to the intensive care unit for pneumonia and acute hypoxic respiratory failure. 1. Severe Sepsis 2/2 capna 2. Acute hypoxic resp failure 2/2 #1 3. Lactic acidosis likely 2/2 hypoxia and #1 Pt presented with an elevated wbc count, and elevated lactate. Blood cxs are negative. Sputum cx never collected as per the labs. Patient's symptoms have improved and he is now back to his baseline of home oxygen 5L. He has a wound care [facility] at [facility] who assists him and has his oxygen tank and humidifier at home. Lactate normalized. He has received, 3 days of IV antibiotics. We will discharge the patient on Levaquin for 4 more days. PT is recommending that the patient be discharged to a SNF for rehab as he is not ambulating well and unsteady on his feet. I will discuss this with case management today. 4. ETOH withdrawal Patient was on CIWA protocol. Currently no signs of withdrawal. I discussed the case with the nurse. Continue mv, thiamine, folic acid. Patient advised to avoid alcohol. Lovenox for dvt prophylaxis. Addendum: I was notified that the patient decided to leave against medical advice. Patient was alert and oriented x 3. I was trying to discuss the case with case management regarding discharging the patient to a SNF as he was unsteady on his feet and would have benefited rehab. Time Spent with Patient Total time spent providing and/or coordinating discharge services: Greater than 30 minutes Quality: VTE Deep Vein Thrombosis/Pulmonary Embolism Present on Admission: No Exam Narrative Exam Narrative: alert and oriented x 3 S1S2 tachycardic CTA b/l Tracheostomy in place No edema of the exts Patient is ambulatory but unsteady on his feet. No focal neuro deficits. Results Labs on day of discharge: Preliminary micro results at discharge 07/17/18 20:30 Aerobic Blood Culture - Preliminary Blood - Peripheral No growth in 3 days Anaerobic Blood Culture - Preliminary No growth in 3 days 07/17/18 20:35 Aerobic Blood Culture - Preliminary Blood - Peripheral No growth in 3 days Anaerobic Blood Culture - Preliminary No growth in 3 days Impressions ITS Impressions Chest X-Ray 07/18/18 05:00 CONCLUSION: 1. Stable elevation of the right hemidiaphragm with improving bibasilar atelectatic changes. 2. Heart size is borderline prominent but well compensated. Head CT 07/20/18 00:00 CONCLUSION: 1. No acute intracranial abnormality. . . Discharge Plan Discharge Disposition Patient Disposition: 07 Against Medical Advice Discharge Condition Condition: Fair Discharge Order Discharge Orders: AMA Discharge (Routine); Ordered 07/23/18 Ordered By: Bushra Guillaume Physicians Team ED Provider: Coco Atkins Primary Care Provider: Primary Care Mariajose Flores Attending Provider: Bushra Guillaume Rxs /Orders / Referrals /Forms Prescriptions: New azithromycin [Zithromax] 500 mg tablet 500 mg PO DAILY 3 Days Qty: 3 RF: 0 cefdinir 300 mg capsule 300 mg PO BID Qty: 14 RF: 0 No Action Unable to Obtain Home Meds RF: 0 Referrals: Primary Care Provider [Outside] - See Instructions ( Please call the physician's office to book the appointment to be seen within 1 week.) Primary Care Mariajose Flores [Primary Care Provider] - See Instructions Status ED Status: Left Department Discharge Information Discharge Date/Time: 07/21/18 11:27
[2018-07-21 12:56] VITALS: O2SAT 95
[2018-07-21 13:00] VITALS: BP 149/86; TEMP 97.8
== END 2018-07-21 11:27 | disposition left against medical advice (07) | DRG 871 ==
LOC: NEPE 20:18 → NEDA 22:38 → HIMC 07-18 03:04
PROVIDERS: ADMIT Hospitalist; ATTEND Hospitalist
DX: I25.2 Old myocardial infarction; Z99.81 Dependence on supplemental oxygen; J39.8 Other specified diseases of upper respiratory tract; Z88.5 Allergy status to narcotic agent; F43.10 Post-traumatic stress disorder, unspecified; I10 Essential (primary) hypertension; J18.9 Pneumonia, unspecified organism; R65.21 Severe sepsis with septic shock; Z93.0 Tracheostomy status; E87.2 Acidosis; J96.01 Acute respiratory failure with hypoxia; R26.81 Unsteadiness on feet; F10.239 Alcohol dependence with withdrawal, unspecified; A41.9 Sepsis, unspecified organism; R00.0 Tachycardia, unspecified
CPT/HCPCS: 70450; 71010; 71045; 80048; 80053; 82550; 82552; 82948; 82962; 83520; 83605; 83735; 83880; 84100; 84484; 85025; 85610; 85730; 87040; 87641; 90765; 90775; 90776; 93005; 94640; 94664; 94665; 96365; 96375; 96376; 97162; 97166; 97530; 99291; J0456; J0692; J1630; J1650; J2060; J2405; J3411; J7030; J7040; J7050; Q0163